=== PATIENT | male | born 1945 | race Caucasian/White ===

== ENCOUNTER 2016-10-14 08:42 | Inpatient (IN) | payer OTHER ==
--- NOTE | 2016-10-14 08:48 | EDPHY ---
H & P HPI/ROS: CHIEF COMPLAINT: Memory issues, balance issues. HISTORY OF PRESENT ILLNESS: The patient is a 71-year-old male with a history of trigeminal neuralgia, tourette's, and Meniere's Disease who presents with memory and balance issues that were 1st noticed by his last night. His reports that he has been repeating the same questions over and over again. Additionally, he has a history of balance issues for multiple years which he has long ago compensated for but was more off-balance this morning. He does admit associated right-sided headache but he is unable to describe if it is different from his typical trigeminal neuralgia pain. He is not on blood thinners. He denies chest pain, shortness of breath, or other complaints. With additional questioning his reports that he fell a couple of days ago. REVIEW OF SYSTEMS: A 10 point review of systems was performed and is negative with the exception of the elements mentioned in the history of present illness. Source: Patient, Family Exam Limitations: No limitations - Personal History Tetanus Vaccine Date: 2013 - Medical/Surgical History Hx Asthma: No Hx Chronic Respiratory Disease: No Hx Diabetes: No Hx Cardiac Disease: No Hx Renal Disease: No Hx Cirrhosis: No Hx Alcoholism: No Hx HIV/AIDS: No Hx Splenectomy or Spleen Trauma: No Other PMH: Tourettes, Meniere's disease, trigeminal neuralgia, HTN, GERD, Depression. PSH: R hand; labrinthectomy; head; microvascular decompression trigeminal nerve; L4-L5 fusion; L1-2 fusion; L shoulder surgery; R ankle; bilateral hernia repair; R 5th finger amputation - Social History Smoking Status: Never smoked Additional Social History: He lives with his . He does not use tobacco products. He denies the use of illicit drugs. He drinks 3-5 alcoholic beverages daily. - Physical Exam Exam: General Appearance: Alert, no acute distress. BP 152/103. Head: Normocephalic atraumatic. Eyes: Pupils equal and round, no conjunctival injection, no discharge. ENT, Mouth: Mucous membranes are moist, no oropharyngeal erythema or edema. Neck: No lymphadenopathy, supple. Respiratory: Lungs are clear to auscultation; no wheezes, rales, or rhonchi. Cardiovascular: Regular rate and rhythm; no murmur, rub, or gallop. Gastrointestinal: Abdomen is soft and nontender, no masses or organomegaly, bowel sounds normal. Skin: Warm and dry, no rashes, normal color. Back: Nontender to palpation over the thoracolumbar spine. Extremities: No lower extremity edema, no calf tenderness or swelling. Neurological: Alert and oriented to person, place, year, and situation. Moving all four extremities easily and equally. Cranial nerves II through XII are examined and are intact with the exception of slight flattening of the left nasal labial fold (visual acuity not tested). Strength is 5 over 5 bilaterally with testing of all major motor groups. Sensation is intact to light touch over all 4 extremities. No truncal ataxia. He was able to ambulate and did not appear to be off balance. Psychiatric: Normal affect. No agitation. Constitutional: Initial Vital Signs Temperature (C) 36.5 C 10/14/16 08:45 Heart Rate 68 10/14/16 08:45 Respiratory Rate 20 10/14/16 08:45 Blood Pressure 152/103 H 10/14/16 08:45 O2 Sat (%) 97 10/14/16 08:45 O2 Delivery Mode Nasal Cannula O2 (L/minute) 2 Allergies/Adverse Reactions: [place] Allergy (Verified 10/14/16 09:19) hops Allergy (Unknown, Uncoded 10/07/14 09:29) pos allergy test [place] Allergy (Unknown, Uncoded 10/07/14 09:30) pos allergy test Home Medications: Medication Instructions Recorded Lisinopril [Zestril 10 mg (*)] 10 mg PO DAILY 10/01/11 Ranitidine HCl [Ranitidine HCl 150 150 mg PO HS 10/12/11 mg] Escitalopram Oxalate [Lexapro] 20 mg PO DAILY 07/17/14 Niacin [Niacin 500 mg (*)] 500 mg PO DAILY 10/14/16 Sildenafil Citrate [Viagra] 100 mg PO DAILY PRN 10/14/16 Tamsulosin HCl [Flomax 0.4 MG (*)] 0.8 mg PO DAILY 10/14/16 Medical Decision Making - Diagnostics Imaging: Imaging Impressions Head CT 10/14/16 08:52 Impression: Large left cerebral hemisphere subacute subdural hematoma with extensive mass effect, rightward 2 cm subfalcine herniation, midline shift, and uncal herniation. Findings and recommendations discussed with Emergency Department physician, Becka Jordan at 0858 hours, October 14, 2016. Final report concurs with initial preliminary interpretation. Chest X-Ray 10/14/16 09:00 Impression: 1. No acute pulmonary disease. 2. Atherosclerotic aorta. ED Course/Re-evaluation: 0845: Stroke alert called as the patient was brought back to his room from triage. I immediately examined the patient in his room. Respiratory therapy at bedside. Patient sent to CT for head imaging after my exam. He complains of left-sided headache. His notes difficulty with balance this morning and confusion that 1st became apparent to her last evening around 8:00 p.m. He is out of the time window for tPA treatment, should this be an ischemic stroke. An IV was established and labs ordered. 0857: Consulted with radiologist. He reports left-sided frontoparietal subdural hematoma. I discussed this with the patient and his at this time. His reports that he fell a couple of days ago. On exam he has a subtle flattening of left nasolabial fold but no other obvious deficits. Neurosurgery paged. Second IV established. 0901: Consulted with neurosurgery re: subdural hematoma. I reviewed the CT scan. He appears to have an acute on chronic subdural hematoma with midline shift. 0905: Neurosurgery PA at bedside examining patient. Surgery planned. Patient's lab work is unremarkable. I independently reviewed the patient's imaging studies on the PACS system. Please see Imaging section for radiologist reports. Differential Diagnosis: I considered a differential diagnosis that includes but is not limited to ischemic stroke, hemorrhagic stroke, subdural hematoma, intracranial infection, electrolyte abnormality, medication or intoxicant effect. This patient has a subdural hematoma, acute on chronic based upon the CT scan appearance. Critical Care Time: I, Dr. Becka Jordan, personally spent a total of 30 minutes of critical care time including time spent obtaining a history, performing a physical exam, monitoring interventions, collecting and interpreting tests and in discussion with consultants. This does not include time spent performing procedures or physician medical office assistant instructor time. He was at risk of neurologic deterioration. - Data Points Laboratory Results: Laboratory Results 10/14/16 08:50 10/14/16 08:50 10/14/16 10/14/16 10/14/16 08:50 08:50 08:50 WBC 6.82 10^3/uL 10^3/uL (3.80-9.50) RBC 4.76 10^6/uL 10^6/uL (4.40-6.38) Hgb 14.8 g/dL g/dL (13.7-17.5) POC Hgb Hct 43.1 % % (40.0-51.0) POC Hct MCV 90.5 fL fL (81.5-99.8) MCH 31.1 pg pg (27.9-34.1) MCHC 34.3 g/dL g/dL (32.4-36.7) RDW 14.3 % % (11.5-15.2) Plt Count 316 10^3/uL 10^3/uL (150-400) MPV 9.8 fL fL (8.7-11.7) Neut % (Auto) 62.5 % % (39.3-74.2) Lymph % (Auto) 28.7 % % (15.0-45.0) [place] % (Auto) 7.2 % % (4.5-13.0) Eos % (Auto) 0.4 % L % (0.6-7.6) Baso % (Auto) 0.6 % % (0.3-1.7) Nucleat RBC Rel Count 0.0 % % (0.0-0.2) Absolute Neuts (auto) 4.26 10^3/uL 10^3/uL (1.70-6.50) Absolute Lymphs (auto) 1.96 10^3/uL 10^3/uL (1.00-3.00) Absolute Monos (auto) 0.49 10^3/uL 10^3/uL (0.30-0.80) Absolute Eos (auto) 0.03 10^3/uL 10^3/uL (0.03-0.40) Absolute Basos (auto) 0.04 10^3/uL 10^3/uL (0.02-0.10) Absolute Nucleated RBC 0.00 10^3/uL 10^3/uL (0-0.01) Immature Gran % 0.6 % % (0.0-1.1) Immature Gran # 0.04 10^3/uL 10^3/uL (0.00-0.10) PT 12.5 SEC SEC (12.0-15.0) INR 0.94 (0.83-1.16) APTT 22.9 SEC L SEC (23.0-38.0) POC Sodium Sodium 141 mEq/L mEq/L (134-144) POC Potassium Potassium 4.6 mEq/L mEq/L (3.5-5.2) POC Chloride Chloride 107 mEq/L mEq/L (97-110) Carbon Dioxide 23 mEq/l mEq/l (22-31) Anion Gap 11 mEq/L mEq/L (8-16) POC BUN BUN 19 mg/dL mg/dL (7-23) Creatinine 0.8 mg/dL mg/dL (0.7-1.3) POC Creatinine Estimated GFR > 60 Glucose 100 mg/dL mg/dL (70-100) POC Glucose Calcium 9.8 mg/dL mg/dL (8.5-10.4) Troponin I < 0.012 ng/mL ng/mL (0-0.034) 10/14/16 08:45 WBC RBC Hgb POC Hgb 15.6 gm/dL gm/dL (14.5-17.3) Hct POC Hct 46 % % (42.8-50.6) MCV MCH MCHC RDW Plt Count MPV Neut % (Auto) Lymph % (Auto) [place] % (Auto) Eos % (Auto) Baso % (Auto) Nucleat RBC Rel Count Absolute Neuts (auto) Absolute Lymphs (auto) Absolute Monos (auto) Absolute Eos (auto) Absolute Basos (auto) Absolute Nucleated RBC Immature Gran % Immature Gran # PT INR APTT POC Sodium 141 mEq/L mEq/L (134-144) Sodium POC Potassium 4.3 mEq/L mEq/L (3.3-5.0) Potassium POC Chloride 104 mEq/L mEq/L (96-108) Chloride Carbon Dioxide Anion Gap POC BUN 22 mg/dL mg/dL (7-23) BUN Creatinine POC Creatinine 0.8 mg/dL mg/dL (0.8-1.5) Estimated GFR Glucose POC Glucose 101 mg/dL H mg/dL (70-100) Calcium Troponin I Medications Given: Discontinued Medications Hydromorphone HCl (Dilaudid) 0.5 mg IVP EDNOW ONE Stop: 10/14/16 10:01 Last Admin: 10/14/16 10:00 Dose: 0.5 mg Point of Care Test Results: 10/14/16 08:45 POC Sodium 141 POC Potassium 4.3 POC Chloride 104 POC BUN 22 POC Creatinine 0.8 POC Glucose 101 H Departure - Departure Disposition: To OP Cath/Surgery Clinical Impression: Subdural hematoma Condition: Fair Report Scribed for: Becka Jordan Report Scribed by: Melvin Marion Date of Report: 10/14/16 Time of Report: 08:46 Physician Review and Approval Statement: 10/14/16 16:41 Portions of this note were transcribed by the medical assistant ob gyn. I, Dr. Becka Jordan, personally performed the history, physical exam, and medical decision- making; and confirmed the accuracy of the information in the transcribed note.
--- NOTE | 2016-10-14 08:52 | CPEKG ---
Heart Rate: 62 RR Interval: 968 P-R Interval: 172 QRSD Interval: 102 QT Interval: 452 QTC Interval: 459 P [place]: 44 QRS [place]: -16 T Wave [place]: 53 EKG Severity - OTHERWISE NORMAL ECG - EKG Impression: SINUS RHYTHM EKG Impression: BORDERLINE LEFT AXIS DEVIATION Electronically Signed By: Becka Jordan 14-Oct-2016 15:41:41
[2016-10-14 09:04] LABS: % IMMATURE GRANULYOCYTES 0.6 % (0.0-1.1); ABSOLUTE IMMATURE GRANULOCYTES 0.04 10^3/uL (0.00-0.10); ADD DIFF? NO; ADD MORPH? NO; ADD SCAN? NO; ATYPICAL LYMPHOCYTE FLAG 10 (0-99); FRAGMENT RBC FLAG 0 (0-99); HEMATOCRIT 43.1 % (40.0-51.0); HEMOGLOBIN 14.8 g/dL (13.7-17.5); LEFT SHIFT FLG 0 (0-99); LIPEMIA HEMOLYSIS FLAG 90 (0-99); MEAN CELL HEMOGLOBIN 31.1 pg (27.9-34.1); MEAN CELL HEMOGLOBIN CONCENTR. 34.3 g/dL (32.4-36.7); MEAN CELL VOLUME 90.5 fL (81.5-99.8); MEAN PLATELET VOLUME 9.8 fL (8.7-11.7); PLATELET CLUMPS FLAG 0 (0-99); PLATELET COUNT 316 10^3/uL (150-400); RED BLOOD CELL COUNT 4.76 10^6/uL (4.40-6.38); RED CELL DISTRIBUTION WIDTH 14.3 % (11.5-15.2)
[2016-10-14 09:11] LABS: INR 0.94 (0.83-1.16); PROTIME(PATIENT) 12.5 SEC (12.0-15.0)
[2016-10-14 09:12] LABS: APTT 22.9 SEC (23.0-38.0)
[2016-10-14 09:18] LABS: ANION GAP 11 mEq/L (8-16); CALCIUM 9.8 mg/dL (8.5-10.4); CARBON DIOXIDE 23 mEq/l (22-31); CHLORIDE 107 mEq/L (97-110); CREATININE 0.8 mg/dL (0.7-1.3); GLOMERULAR FILTRATION RATE > 60; GLUCOSE 100 mg/dL (70-100); POTASSIUM 4.6 mEq/L (3.5-5.2); SODIUM 141 mEq/L (134-144)
[2016-10-14 09:29] LABS: TROPONIN I < 0.012 ng/mL (0-0.034)
[2016-10-14] MEDS ORDERED: HYDROmorphONE/DILAUDID 1 MG/ML SYR ONE (09:54)
[2016-10-14] MEDS ORDERED: HYDROmorphONE/DILAUDID 1 MG/ML SYR IVP ONE (10:00)
--- NOTE | 2016-10-14 10:00 | GHP ---
[f rep st] PREOP HISTORY AND PHYSICAL DATE OF ADMISSION: 10/14/2016 CHIEF COMPLAINT: Balance problems. HISTORY OF PRESENT ILLNESS: The patient is a 71-year-old male with a history of trigeminal neuralgi a, who had a previous right-sided craniotomy for this years ago. Over the last several weeks, he mclean s been having some generalized headaches with some balance issues. Last night, he started repeating the same question over and over. He was brought to the emergency department today, and a head CT s howed a large left-sided subacute on chronic subdural hematoma, and neurosurgical consultation was r equested. He currently complains of an ongoing headache. He is not having any nausea or vomiting. He denies any new weakness. He does feel that his balance has been off. PAST MEDICAL HISTORY: 1. Tourette's. 2. Degenerative joint disease. 3. Hypertension. 4. GERD. 5. Depression. PAST SURGICAL HISTORY: Includes: 1. Previous right-sided microvascular decompression. 2. Lumbar fusion. 3. Hernia repair. 4. Finger amputation. 5. Shoulder surgery. MEDICATIONS: Medications prior to admission are lisinopril, ranitidine, Lexapro, testosterone, oxyc odone, and Robaxin. ALLERGIES: No known drug allergies. FAMILY HISTORY: The patient has no family history of head trauma. SOCIAL HISTORY: Patient is , with grown children. He does not smoke but does drink approxim ately 3-5 alcoholic drinks per day. He denies recreational drug use. REVIEW OF SYSTEMS: Negative. PHYSICAL EXAM: GENERAL: Patient is a 71-year-old male, lying in the emergency department bed, in n o apparent distress. HEENT: Head, eyes, ears, nose, and throat are negative to drainage. EXTREMIT IES: [place], warm, and dry. NEUROLOGIC: He is awake, alert, and oriented x4. Pupils equal, round, reactive to light. Extraocular motions are intact. There is no evidence of facial droop. Tongue a nd uvula are midline. Spinal accessory muscles are intact. His motor strength is 5/5 in his arms a nd legs. Sensation is grossly intact to light touch in his arms and legs. Deep tendon reflexes are 1/4 in his bilateral biceps, triceps, brachioradialis, patellar and Achilles. There is a negative Kareem's with no clonus. There is no pronator drift. DIAGNOSTIC STUDIES: Head CT without contrast from [facility] PACS on 10/14/2016 at 8:52 a.m. shows a large left-sided hemispheric subacute subdural hematoma. This measures approximat meche 3 cm in its greatest thickness. There is approximately 2 cm of [id number] shift. LABORATORY DATA: A CBC from 10/14/2016 shows a white blood cell count of 6.82, hemoglobin of 14.8, and platelet count of 316. Coagulation studies have an INR of 0.94. Chemistry has a sodium of 141, potassium of 4.6, chloride 106, CO2 of 23, BUN 19, creatinine 0.8, and random glucose is 100. IMPRESSION: This is a 71-year-old male with a history of headaches, falls and balance issues that i s likely related to his very large left-sided subacute subdural hematoma. He is neurologically stab le. PLAN: All the above were discussed in detail with the patient, his , as well as Dr. Anusha plummer. The patient was seen and examined by Dr. Resendez in the emergency department. At this po int in time, we recommend that the patient consider surgical decompression of his large left-sided s ubdural hematoma. This would involve a left-sided craniotomy for evacuation of subdural hematoma. He will be given Keppra 750 mg b.i.d. The patient understands the risks of surgery include, but are not limited to, bleeding, infection, neurological injury, cerebrospinal fluid leak, major vascular injury, ongoing symptoms, and a need for further surgery down the line. He is [facility] up [facility] the [facility] pres[facility] paperwork and signed the [facility] and [facility] con sent forms. We will keep him n.p.o. until surgical intervention today. /[id number]/MODL
[2016-10-14] MEDS: levETIRAcetam 750 MG in NS 100 ML IV SCH ×2 (10:20→20:52)
[2016-10-14] MEDS ORDERED: MANNITOL 20% 100 GM/500 ML BAG IV ONE (10:47)
[2016-10-14] MEDS ORDERED: BUPIVACAINE/EPI 0.25% 30 ML SDV ONE (10:47)
[2016-10-14] MEDS ORDERED: THROMBIN (BOVINE) 5,000 UNIT VIAL TP ONE (10:47)
[2016-10-14] MEDS ORDERED: BACITRACIN 50,000 UNITS/10 ML SYR IRR ONE (10:48)
[2016-10-14] MEDS ORDERED: fentaNYL 100 MCG/2 ML INJ ONE ×3 (11:14→12:53)
[2016-10-14] MEDS ORDERED: PROPOFOL 200 MG/20 ML VIAL ONE (11:14)
[2016-10-14] MEDS ORDERED: PROPOFOL/EMULSION 500 MG/50 ML BOTTLE IV ONE (11:18)
[2016-10-14] MEDS ORDERED: LIDOCAINE 2% 5 ML SDV ONE (11:20)
[2016-10-14] MEDS ORDERED: ROCURONIUM 50 MG/5 ML VIAL ONE (11:34)
[2016-10-14] MEDS ORDERED: ceFAZolin 1 GM VIAL ONE ×2 (12:12)
[2016-10-14] MEDS ORDERED: SUGAMMADEX SODIUM 200 MG/2 ML VIAL IVP ONE (12:36)
[2016-10-14] MEDS ORDERED: BISACODYL 10 MG SUPP PR PRN (13:17)
[2016-10-14] MEDS ORDERED: MAGNESIUM HYDROXIDE 30 ML UDCUP PO PRN (13:17)
[2016-10-14] MEDS ORDERED: niCARdipine/NACL 200 ML IV PRN (13:17)
[2016-10-14] MEDS ORDERED: PROMETHAZINE HCL 25 MG TAB PO PRN (13:17)
[2016-10-14] MEDS ORDERED: ONDANSETRON 4 MG/2 ML VIAL IVP PRN (13:17)
[2016-10-14] MEDS ORDERED: LACTULOSE 20 GM/30 ML UDCUP PO PRN (13:17)
[2016-10-14] MEDS ORDERED: SILDENAFIL CITRATE 100 MG PO PRN (13:21)
--- NOTE | 2016-10-14 13:24 | SOAPPROG ---
SOAP Progress Note Assessment/Plan: Assessment: 71 yo M sp craniotomy for evacuation of left sided SDH Plan: stable subdural drain open below shoulder level head ct in am on keppra please call with neuro changes 10/14/16 13:22 Subjective: + headache, no N/V. Objective: Vital Signs Temp Pulse Resp BP Pulse Ox 36.5 C 65 16 135/91 H 97 10/14/16 08:45 10/14/16 10:47 10/14/16 10:47 10/14/16 10:47 10/14/16 10:47 10/13/16 10/14/16 10/15/16 05:59 05:59 05:59 Intake Total 100 Balance 100 PT 12.5 SEC (12.0-15.0) 10/14/16 08:50 INR 0.94 (0.83-1.16) 10/14/16 08:50 Awake, alert PERRL, no facial droop BRADLEY x 4 + light touch C/D/I ICD10 Worksheet Patient Problems: Problems Problem Status Onset Subdural hematoma Acute S/P lumbar spinal fusion Acute
[2016-10-14] MEDS ORDERED: (Sildenafil Citrate [Viagra] 100 MG) PO PRN (13:35)
[2016-10-14] MEDS: NS W/ 20 KCl/L 1,000 ML IV SCH ×2 (13:40→23:34)
[2016-10-14] MEDS ORDERED: LORazepam 2 MG/ML INJ IVP PRN ×2 (13:52→13:54)
[2016-10-14] MEDS ORDERED: DEXMEDETOMIDINE HCL 400 MCG in NS 100 ML IV SCH (14:00)
--- NOTE | 2016-10-14 15:21 | GOP ---
[f rep st] OPERATIVE REPORT DATE OF OPERATION: 10/14/2016 SURGEON: Trey Resendez MD ANESTHESIA: General endotracheal. PREOPERATIVE DIAGNOSIS: Large left, acute on chronic subdural hematoma. POSTOPERATIVE DIAGNOSIS: Large left, acute on chronic subdural hematoma. PROCEDURE PERFORMED: 1. Emergency left-sided craniotomy for evacuation of subdural hematoma. 2. Placement of subdural drainage catheter. FINDINGS: ESTIMATED BLOOD LOSS: Trace. INDICATIONS: The patient is a 71-year-old man with mental status changes and balance difficulty ove r the past couple of days. The reports that he fell down a couple of days ago, and he has just not been acting right. He was brought to the [facility] emergency room where a hea d CT demonstrated a large subdural fluid collection. He presents now for surgical intervention. Af ter neurosurgical evaluation and a significant (2 cm) amount of brain shift and mass effect. DESCRIPTION OF PROCEDURE: After informed consent was obtained, the patient was taken to the operati ng room and placed in the supine position with the head in the [place] head end desizing machine operator. The head was a ngled slightly to the right, and the left frontoparietal area was prepped and draped in sterile fash ion, and a curvilinear incision was created over the coronal suture area and the skin flapped inferi kat. A subperiosteal dissection ensued and an approximately 5-6 cm bone flap was turned in a stand levar fashion using a match stick fluted bur and the router. Multiple peripheral tack-ups were then p laced and meticulous hemostasis was achieved. The dura was opened, and a thick membrane was identif ied below the dura, holding a large amount of motor oil consistency blood in the subdural space idania g with also more acute thickened blood and other material in the subdural space. The brain had been significantly shifted away from the skull by approximately 3 cm. The subdural space was copiously irrigated with normal saline until it was completely clear. Following this, a red rubber catheter w as then placed and tunneled out the skin through a separate area and connected to a Diggs drainage system. The dura was then closed using interrupted Nurolon and a running Prolene suture along with Gel-Foam soaked in thrombin. The bone flap was then replaced and secured with multiple titanium fco raul and screws. The galea was then reapproximated using interrupted Vicryl sutures, followed by sta ples in the skin. COMPLICATIONS: None. DISPOSITION: The patient was extubated and transferred to the recovery room in stable condition. /[id number]/MODL
[2016-10-14] MEDS: POLYETHYLENE GLYCOL 3350 17 GM PKT PO SCH ×2 (17:18→20:40)
[2016-10-14] MEDS: HYDROCODONE/APAP 10/325 TAB PO PRN (18:35)
--- NOTE | 2016-10-14 20:41 | GCON ---
[f rep st] CONSULTATION PULMONARY CRITICAL CARE CONSULTATION DATE OF CONSULTATION: 10/14/2016 REASON FOR CONSULTATION: Intensive care unit evaluation and medical management following craniotomy for a subdural hematoma. HISTORY: The patient is a 71-year-old gentleman who presented to the emergency department with head ache and balance issues that have been progressive over the last couple of weeks. Yesterday he star nelly perseverating. He was brought to the emergency room secondary to his abnormal mental status. C T scan of the head showed a large left-sided subdural fluid collection, which was at least in part c hronic. He was taken to the operating room today where his subdural was drained. He underwent cran iotomy with successful evacuation of his fluid collection. A subdural drainage catheter was left in place. He was returned to the intensive care unit in good condition, extubated, but confused and u ncooperative. He has been placed on Precedex. PAST MEDICAL HISTORY: Remarkable for systemic hypertension, gastroesophageal reflux disease, depres kamron, Tourette's syndrome, and DJD. PAST SURGICAL HISTORY: Included a previous right-sided craniotomy for trigeminal neuralgia a number of years ago, herniorrhaphy, lumbar surgery, shoulder surgery, and finger amputation. MEDICATIONS: Home medications included p.r.n. sildenafil, niacin, Flomax, Zantac, Zestril and Lexap ro. SOCIAL HISTORY: The patient is . He does drink alcohol nightly, 3-5 drinks by history. Tob acco is negative. Drugs are negative. FAMILY HISTORY: Noncontributory. REVIEW OF SYSTEMS: Unobtainable currently. PHYSICAL EXAMINATION: GENERAL: Reveals a gentleman who is immediately postop, agitated, and relati vely uncooperative. VITAL SIGNS: Blood pressure is 130/60, heart rate bradycardic in the low 40s, saturation is of 99% on 3 L, respiratory rate 12. He is afebrile. HEENT: Remarkable for his crani otomy and drain being in place. Pupils appear equal. Mucous membranes are dry. There is no jugula r venous distention. CHEST: Clear bilaterally. Excursions are somewhat diminished at the bases. HEART: Regular in rate and rhythm. There is a soft systolic murmur, no gallop. ABDOMEN: Soft, no ntender. Bowel sounds are diminished but present. EXTREMITIES: Remarkable for significant edema, cords or tenderness. A Haddad catheter is in place. NEUROLOGIC: Examination is grossly nonfocal. He is agitated and somewhat confused postoperatively. ASSESSMENT: 1. Subdural hematoma, status post evacuation. 2. Abnormal mental status. Multifactorial, related to recovery from anesthesia, medications, and p ossibly the effects of his subdural. In addition, he has underlying Tourette's syndrome and I do no t know the severity of this. He is currently agitated and Precedex may be of benefit. 3. He has a history of relatively heavy alcohol use. He is at risk for alcohol withdrawal and will be placed on Ativan. He will be given thiamine as well. If and when appropriate, the CIWA protoco l can be added. 4. History of hypertension, reflux and prostatic hypertrophy. PLAN/RECOMMENDATIONS: The patient will be kept in the intensive care unit. Precedex will be titrat ed for gentle sedation and agitation. Appropriate pain control will be maintained. Seizure prophyl axis with Keppra will be given. Usual outpatient medications will be continued. Appropriate substi tutes may be needed. Laboratory will be followed. Followup CT scan of the head per Neurosurgery. Further plans and recommendations will be made based on his progress over the next 12-24 hours. /[id number]/MODL
[2016-10-14] MEDS: SENNOSIDES/DOCUSATE SODIUM TAB PO SCH (20:52)
[2016-10-14] MEDS: FAMOTIDINE 20 MG TAB PO SCH (20:53)
[2016-10-14] MEDS ORDERED: NON-FORMULARY NEW DRUG (Ranitidine Hcl [Ranitidine Hcl 150 Mg] 150 MG) PO SCH (21:00)
[2016-10-15] MEDS: HYDROCODONE/APAP 10/325 TAB PO PRN ×5 (00:16→23:52)
[2016-10-15 05:34] LABS: % IMMATURE GRANULYOCYTES 0.5 % (0.0-1.1); ABSOLUTE IMMATURE GRANULOCYTES 0.05 10^3/uL (0.00-0.10); ADD DIFF? NO; ADD MORPH? NO; ADD SCAN? NO; ATYPICAL LYMPHOCYTE FLAG 20 (0-99); FRAGMENT RBC FLAG 0 (0-99); HEMATOCRIT 34.6 % (40.0-51.0); HEMOGLOBIN 11.8 g/dL (13.7-17.5); LEFT SHIFT FLG 0 (0-99); LIPEMIA HEMOLYSIS FLAG 90 (0-99); MEAN CELL HEMOGLOBIN 31.6 pg (27.9-34.1); MEAN CELL HEMOGLOBIN CONCENTR. 34.1 g/dL (32.4-36.7); MEAN CELL VOLUME 92.8 fL (81.5-99.8); PLATELET CLUMPS FLAG 10 (0-99); PLATELET COUNT 239 10^3/uL (150-400); RED BLOOD CELL COUNT 3.73 10^6/uL (4.40-6.38); RED CELL DISTRIBUTION WIDTH 14.6 % (11.5-15.2)
[2016-10-15 05:44] LABS: ANION GAP 7 mEq/L (8-16); CALCIUM 8.1 mg/dL (8.5-10.4); CARBON DIOXIDE 21 mEq/l (22-31); CHLORIDE 109 mEq/L (97-110); CREATININE 0.8 mg/dL (0.7-1.3); GLOMERULAR FILTRATION RATE > 60; GLUCOSE 88 mg/dL (70-100); POTASSIUM 4.5 mEq/L (3.5-5.2); SODIUM 137 mEq/L (134-144)
--- NOTE | 2016-10-15 08:16 | NEUSURGPN ---
Assessment/Plan: Assessment: 71 yo M sp craniotomy for evacuation of left sided SDH, POD#1 Plan: stable subdural drain open below shoulder level - 315 out last [address] head ct reviewed, shows improvement. still with expected residual blood products PT/OT/PSYCHIATRIC RN Encourage OOB on keppra please call with neuro changes D/w Dr Child Subjective: Pt resting in bed, states he is feeling good. Eating breakfast. Objective: AAOx3 NAD VSS No droop PERRL EOMi deaf R ear Incision cdi subdural drain in place with bloody dc in line MAEx4 Motor 5/5 BUE/BLE Urinary Catheter in Place: Yes Urinary Catheter Indication: Other (Use Comment) (to be removed today) Catheter Insertion Date: 10/14/16 - Physician Discussed Patient with : Dipti Neurosurgery Physical Exam - Vitals, I&O, Labs I and O 10/14/16 10/15/16 10/16/16 05:59 05:59 05:59 Intake Total 2452.3 Output Total 2290 125 Balance 162.3 -125 Weight 81.647 kg Intake: Oral (ml) 250 IV Infused (ml) 2202.3 Dexmedetomidine HCl 400 17.3 mcg In Ns 100 ml @ Per Protocol IV CONT KEITH Rx#: [id number] NS W/ 20 KCl/L 1,000 ml @ 2085 100 mls/hr IV CONT KEITH Rx#:[id number] Output: Urine (ml) 1974 125 Catheter 1975 125 Wound Drainage (ml) 315 Left Posterior Parietal 315 Other: Intake Quantity Yes Sufficient Vital Signs Temp Pulse Resp BP Pulse Ox 36.1 C 54 L 16 127/80 H 96 10/15/16 07:37 10/15/16 07:37 10/15/16 07:37 10/15/16 07:37 10/15/16 07:37 Laboratory Results 10/15/16 05:24 10/15/16 05:24 ICD10 Worksheet Patient Problems: Problems Problem Status Onset Subdural hematoma Acute S/P lumbar spinal fusion Acute
[2016-10-15] MEDS ORDERED: NON-FORMULARY NEW DRUG (Escitalopram Oxalate [Lexapro] 20 MG) PO SCH (09:00)
[2016-10-15] MEDS: SENNOSIDES/DOCUSATE SODIUM TAB PO SCH ×2 (09:37→20:35)
[2016-10-15] MEDS: ESCITALOPRAM OXALATE 10 MG TAB PO SCH (09:38)
[2016-10-15] MEDS: TAMSULOSIN HCL 0.4 MG CAP PO SCH (09:38)
[2016-10-15] MEDS: POLYETHYLENE GLYCOL 3350 17 GM PKT PO SCH ×3 (09:38→20:35)
[2016-10-15] MEDS: LISINOPRIL 10 MG TAB PO SCH (09:38)
[2016-10-15] MEDS: NIACIN 500 MG TAB PO SCH (09:38)
[2016-10-15] MEDS: levETIRAcetam 500 MG TAB PO SCH ×2 (11:02→20:34)
--- NOTE | 2016-10-15 13:13 | PDINTPN ---
Nurse Wound Progress Note Assessment/Plan: Assessment: Subdural hematoma with balance and mental status changes. Status post evacuation. Drain in place. On Keppra. Doing well, clinically improved. Agitation postoperatively: Resolved. Off Precedex. No clear need for Ativan. History of alcohol use. No signs and symptoms of withdrawal. No need for CIWA protocol. History of hypertension, reflux, Tourettes. Stable, on his usual outpatient medications. DVT prophylaxis: SCDs Plan: Continue care in the intensive care unit for now secondary to drain in place and neurologic monitoring. Follow neuro status. Increase mobilization as tolerated. PT/OT to see. 35 minutes of critical care time spent with the patient. Questions answered. Discussed with the patient's , nursing, and the ICU multi disciplinary team Subjective: Doing well. Feels much better. No longer confused. Alert, appropriate. Denies significant headache. Drain remains in place. Objective: Vital Signs Temp Pulse Resp BP Pulse Ox 36.2 C 57 L 16 122/69 H 94 10/15/16 11:49 10/15/16 11:49 10/15/16 11:49 10/15/16 11:49 10/15/16 11:49 Laboratory Results 10/15/16 05:24 10/15/16 05:24 10/14/16 10/15/16 10/16/16 05:59 05:59 05:59 Intake Total 2452.3 1500 Output Total 2290 1025 Balance 162.3 475 PT 12.5 SEC (12.0-15.0) 10/14/16 08:50 INR 0.94 (0.83-1.16) 10/14/16 08:50 CT head: Drain in place. Improved subdural hematoma and shift as expected Physical Exam - Physical Exam General Appearance: alert, no apparent distress EENT: PERRL/EOMI, other (Drain in place with bloody fluid draining) Neck: normal inspection Respiratory: lungs clear Cardiac/Chest: bradycardia (High 30s to 50s. Blood pressure stable) Abdomen: normal bowel sounds, non-tender, soft Skin: normal color, warm/dry Extremities: No pedal edema Neuro/Psych: no motor/sensory deficits, No cognition abnormalities ICD10 Worksheet Patient Problems: Problems Problem Status Onset S/P lumbar spinal fusion Acute Subdural hematoma Acute
[2016-10-15] MEDS: levETIRAcetam 750 MG in NS 100 ML IV SCH (13:25)
[2016-10-15] MEDS: FAMOTIDINE 20 MG TAB PO SCH (20:35)
[2016-10-16] MEDS: HYDROCODONE/APAP 10/325 TAB PO PRN ×4 (06:50→23:08)
--- NOTE | 2016-10-16 07:07 | NEUSURGPN ---
Assessment/Plan: Assessment: 71 yo M sp craniotomy for evacuation of left sided SDH, POD#2 Plan: stable subdural drain open below shoulder level - drain was flush and is now producing blood tinged fluid. Previously output was low. Post op head ct reviewed, shows improvement. 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 Tolerating diet and voiding. Objective: AAOx3 VSS No droop CN II-XII grossly intact MAEx4 Incision cdi subdural drain with serosanguineous dc in line, draining now after being flushed. Urinary Catheter in Place: No Catheter Insertion Date: 10/14/16 Neurosurgery Physical Exam - Vitals, I&O, Labs I and O 10/15/16 10/16/16 10/17/16 05:59 05:59 05:59 Intake Total 2452.3 2100 Output Total 2290 4188 5 Balance 162.3 -2088 -5 Weight 81.647 kg Intake: Oral (ml) 250 2100 IV Infused (ml) 2202.3 Dexmedetomidine HCl 400 17.3 mcg In Ns 100 ml @ Per Protocol IV CONT KEITH Rx#: [id number] NS W/ 20 KCl/L 1,000 ml @ 2085 100 mls/hr IV CONT KEITH Rx#:[id number] Output: Urine (ml) 1974 4150 Catheter 1975 125 Urinal 4025 Wound Drainage (ml) 315 38 5 Left Posterior Parietal 315 38 5 Other: Intake Quantity Yes Yes Sufficient Number of Voids Urinal 1 Vital Signs Temp Pulse Resp BP Pulse Ox 36.8 C 46 L 14 124/64 H 97 10/15/16 19:46 10/16/16 02:38 10/16/16 02:38 10/16/16 02:38 10/16/16 02:38 Laboratory Results 10/15/16 05:24 10/15/16 05:24 ICD10 Worksheet Patient Problems: Problems Problem Status Onset Subdural hematoma Acute S/P lumbar spinal fusion Acute
[2016-10-16] MEDS: SENNOSIDES/DOCUSATE SODIUM TAB PO SCH ×2 (08:29→20:10)
[2016-10-16] MEDS: levETIRAcetam 500 MG TAB PO SCH ×2 (08:30→20:10)
[2016-10-16] MEDS: NIACIN 500 MG TAB PO SCH (08:30)
[2016-10-16] MEDS: ESCITALOPRAM OXALATE 10 MG TAB PO SCH (08:30)
[2016-10-16] MEDS: TAMSULOSIN HCL 0.4 MG CAP PO SCH (08:31)
[2016-10-16] MEDS: LISINOPRIL 10 MG TAB PO SCH (08:31)
[2016-10-16] MEDS: POLYETHYLENE GLYCOL 3350 17 GM PKT PO SCH ×3 (08:31→22:00)
--- NOTE | 2016-10-16 15:03 | PDINTPN ---
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 Status post evacuation 10/14. Drain in place. On Keppra. Doing well. Continue plans as per neuro surgery. Agitation postoperatively: Resolved. Off Precedex. No need for Ativan. History of alcohol use. No signs and symptoms of withdrawal. No need for CIWA protocol. History of hypertension, reflux, Tourettes. Stable, on his usual outpatient medications. DVT prophylaxis: SCDs Plan: Continue care in the intensive care unit for now secondary to drain and neurologic monitoring. Follow neuro status. Increase mobilization as tolerated. Continue work with PT/OT. 25 minutes of critical care time spent with the patient. Discussed with the patient's , nursing, and the ICU multi disciplinary team Subjective: Doing well. Working with physical therapy this morning. Walked twice around the unit. Still somewhat unsteady on his feet. Objective: Vital Signs Temp Pulse Resp BP Pulse Ox 36.4 C 61 15 121/64 H 95 10/16/16 12:00 10/16/16 12:00 10/16/16 12:00 10/16/16 12:00 10/16/16 12:00 Laboratory Results 10/15/16 05:24 10/15/16 05:24 10/15/16 10/16/16 10/17/16 05:59 05:59 05:59 Intake Total 2452.3 2100 Output Total 2290 4188 30 Balance 162.3 -2088 -30 PT 12.5 SEC (12.0-15.0) 10/14/16 08:50 INR 0.94 (0.83-1.16) 10/14/16 08:50 Physical Exam - Physical Exam General Appearance: alert, no apparent distress EENT: PERRL/EOMI, other (Drain in place, bloody serous fluid. Slowing down but still draining, more so as the drain was lowered.) Neck: normal inspection Respiratory: lungs clear Cardiac/Chest: regular rate, rhythm Abdomen: normal bowel sounds, non-tender, soft Skin: normal color, warm/dry Extremities: No pedal edema Neuro/Psych: no motor/sensory deficits (Moves all extremities equally), No cognition abnormalities ICD10 Worksheet Patient Problems: Problems Problem Status Onset S/P lumbar spinal fusion Acute Subdural hematoma Acute
[2016-10-16] MEDS: FAMOTIDINE 20 MG TAB PO SCH (20:10)
[2016-10-17] MEDS: HYDROCODONE/APAP 10/325 TAB PO PRN ×4 (07:09→23:35)
[2016-10-17] MEDS: LISINOPRIL 10 MG TAB PO SCH (08:25)
[2016-10-17] MEDS: NIACIN 500 MG TAB PO SCH (08:26)
[2016-10-17] MEDS: levETIRAcetam 500 MG TAB PO SCH ×2 (08:26→20:12)
[2016-10-17] MEDS: ESCITALOPRAM OXALATE 10 MG TAB PO SCH (08:26)
[2016-10-17] MEDS: SENNOSIDES/DOCUSATE SODIUM TAB PO SCH ×2 (08:26→20:07)
[2016-10-17] MEDS: TAMSULOSIN HCL 0.4 MG CAP PO SCH (08:26)
[2016-10-17] MEDS: POLYETHYLENE GLYCOL 3350 17 GM PKT PO SCH ×3 (08:27→20:28)
--- NOTE | 2016-10-17 12:38 | PDINTPN ---
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 Status post evacuation 10/14. Drain in place. On Keppra. Doing well. Continue plans as per neuro surgery. Agitation postoperatively: Resolved. Off Precedex. No need for Ativan. History of alcohol use. No signs and symptoms of withdrawal. No need for CIWA protocol. History of hypertension, reflux, Tourettes. Stable, on his usual outpatient medications. DVT prophylaxis: SCDs Plan: Continue care in the intensive care unit for now secondary to drain and neurologic monitoring. Follow neuro status. Increase mobilization as tolerated. Continue work with PT/OT. 20 minutes of critical care time spent with the patient. Discussed with the patient's , nursing, and the ICU multi disciplinary team Subjective: Doing well. No complaints. No shortness of breath, slight headache. Unsteadiness is better. No bowel movement yet. Objective: Vital Signs Temp Pulse Resp BP Pulse Ox 36.3 C 57 L 14 146/76 H 98 10/17/16 08:00 10/17/16 08:00 10/17/16 08:00 10/17/16 08:25 10/17/16 08:00 Laboratory Results 10/15/16 05:24 10/15/16 05:24 10/16/16 10/17/16 10/18/16 05:59 05:59 05:59 Intake Total 2100 500 Output Total 4188 1166 3 Balance -2088 -1166 497 PT 12.5 SEC (12.0-15.0) 10/14/16 08:50 INR 0.94 (0.83-1.16) 10/14/16 08:50 Physical Exam - Physical Exam General Appearance: alert, no apparent distress EENT: other (On room air. Drain remains in place, decreasing drainage) Neck: normal inspection Respiratory: lungs clear Cardiac/Chest: bradycardia Abdomen: normal bowel sounds, non-tender, soft Skin: normal color, warm/dry Neuro/Psych: no motor/sensory deficits (Non focal), No cognition abnormalities ICD10 Worksheet Patient Problems: Problems Problem Status Onset S/P lumbar spinal fusion Acute Subdural hematoma Acute
--- NOTE | 2016-10-17 16:01 | NEUSURGPN ---
Assessment/Plan: Assessment: 71 yo M sp craniotomy for evacuation of left sided SDH, POD#3 Patient seen and examined this AM Plan: stable subdural drain open below shoulder level - drain was flushed again this am, possibly remove tomorrow as output is slowing. Post op head ct reviewed, shows improvement. 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 Feeling ok. Objective: AAOx3 NAD VSS MAEx4 Motor 5/5 BUE/BLE Incision cdi justin in place Subdural drain with clotting in line Urinary Catheter in Place: No Catheter Insertion Date: 10/14/16 Neurosurgery Physical Exam - Vitals, I&O, Labs I and O 10/16/16 10/17/16 10/18/16 05:59 05:59 05:59 Intake Total 2100 500 Output Total 4188 1166 5 Balance -2088 -1166 495 Intake: Oral (ml) 2100 500 Output: Urine (ml) 4150 1125 Catheter 125 Urinal 4025 1125 Wound Drainage (ml) 38 41 5 Left Posterior Parietal 38 41 5 Other: Intake Quantity Yes Yes Sufficient Number of Voids Urinal 1 1 2 Number of Stools Urinal 1 Vital Signs Temp Pulse Resp BP Pulse Ox 36.6 C 58 L 14 108/58 L 95 10/17/16 12:00 10/17/16 12:00 10/17/16 12:00 10/17/16 12:00 10/17/16 12:00 Laboratory Results 10/15/16 05:24 10/15/16 05:24 ICD10 Worksheet Patient Problems: Problems Problem Status Onset Subdural hematoma Acute S/P lumbar spinal fusion Acute
[2016-10-17] MEDS: FAMOTIDINE 20 MG TAB PO SCH (20:12)
[2016-10-18] MEDS: HYDROCODONE/APAP 10/325 TAB PO PRN ×2 (06:26→12:38)
--- NOTE | 2016-10-18 06:35 | NEUSURGPN ---
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 NAD. Eating/drinking and voiding. No f/c/n/v/d. Objective: AAOx3 NAD VSS MAEx4 Motor 5/5 BUE/BLE Incision cdi justin in place Subdural drain noted Neuro Check Frequency: per routine Urinary Catheter in Place: No Catheter Insertion Date: 10/14/16 - Physician Discussed Patient with : Dipti Neurosurgery Physical Exam - Vitals, I&O, Labs I and O 10/17/16 10/18/16 10/19/16 05:59 05:59 05:59 Intake Total 1250 Output Total 1166 11.5 Balance -1166 1238.5 Intake: Oral (ml) 1250 Output: Urine (ml) 1125 Urinal 1125 Wound Drainage (ml) 41 11.5 Left Posterior Parietal 41 11.5 Other: Intake Quantity Yes Sufficient Number of Voids Urinal 1 1 Number of Stools Urinal 3 Vital Signs Temp Pulse Resp BP Pulse Ox 36.6 C 57 L 14 138/75 H 93 10/17/16 23:37 10/18/16 04:00 10/18/16 04:00 10/18/16 04:00 10/18/16 04:00 Laboratory Results 10/15/16 05:24 10/15/16 05:24 ICD10 Worksheet Patient Problems: Problems Problem Status Onset Subdural hematoma Acute S/P lumbar spinal fusion Acute
[2016-10-18 07:33] VITALS: PULSE 53; RESP 12; TEMP 97.9
[2016-10-18] MEDS: SENNOSIDES/DOCUSATE SODIUM TAB PO SCH (07:44)
[2016-10-18] MEDS: POLYETHYLENE GLYCOL 3350 17 GM PKT PO SCH (07:44)
[2016-10-18] MEDS: LISINOPRIL 10 MG TAB PO SCH (07:46)
[2016-10-18 07:47] VITALS: BP 110/78
[2016-10-18] MEDS: levETIRAcetam 500 MG TAB PO SCH (07:47)
[2016-10-18] MEDS: TAMSULOSIN HCL 0.4 MG CAP PO SCH (07:47)
[2016-10-18] MEDS: ESCITALOPRAM OXALATE 10 MG TAB PO SCH (07:48)
[2016-10-18] MEDS: NIACIN 500 MG TAB PO SCH (07:48)
--- NOTE | 2016-10-18 09:48 | PDINTPN ---
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 Status post evacuation 10/14. Drain in place. On Keppra. Doing well. Continue plans as per neuro surgery. -possible D/c of drain today * Agitation postoperatively: Resolved. Off Precedex. No need for Ativan. * History of alcohol use. No signs and symptoms of withdrawal. No need for CIWA protocol. * History of hypertension, reflux, Tourettes. Stable, on his usual outpatient medications. * DVT prophylaxis: SCDs Subjective: Comfortable. Objective: Vital Signs Temp Pulse Resp BP Pulse Ox 36.6 C 53 L 12 110/78 96 10/18/16 07:32 10/18/16 07:32 10/18/16 07:32 10/18/16 07:46 10/18/16 07:32 Laboratory Results 10/15/16 05:24 10/15/16 05:24 10/17/16 10/18/16 10/19/16 05:59 05:59 05:59 Intake Total 1650 Output Total 1166 11.5 0 Balance -1166 1638.5 0 PT 12.5 SEC (12.0-15.0) 10/14/16 08:50 INR 0.94 (0.83-1.16) 10/14/16 08:50 Physical Exam - Physical Exam General Appearance: alert, no apparent distress EENT: PERRL/EOMI, normal ENT inspection, pharynx normal, TMs normal Neck: non-tender, full range of motion, supple, normal inspection Respiratory: chest non-tender, lungs clear, normal breath sounds Cardiac/Chest: normal peripheral pulses, regular rate, rhythm Peripheral Pulses: 2+: carotid (R), carotid (L), femoral (R), femoral (L), dorsalis-pedis (R), dorsalis-pedis (L) Abdomen: normal bowel sounds, non-tender, soft Male Genitalia: deferred Rectal: deferred Skin: normal color, warm/dry ICD10 Worksheet Patient Problems: Problems Problem Status Onset Subdural hematoma Acute S/P lumbar spinal fusion Acute
[2016-10-18 15:25] VITALS: O2SAT 94
--- NOTE | 2016-11-02 16:01 | GDS ---
[f rep st] DISCHARGE SUMMARY ADMISSION DIAGNOSIS: Acute on chronic subdural hematoma. DISCHARGE DIAGNOSIS: Status post craniotomy for evacuation of subdural hematoma. HISTORY AND PHYSICAL: Please see admission history and physical course. This is a 71-year-old male who presented with headaches, falls and balance issues. He was evaluated in the [facility] emergency department and was found to have a very large, left-sided, acute on chronic subdural hematoma. He was taken to the operating room on 10/14/2016 where he underwent a left-sided craniotomy for evacuation of subdural hematoma. There were no intraoperative complicati ons, and a drain was placed in the subdural space. His postoperative imaging showed improvement of the subdural hematoma with some chronic residual fluid with a chronic residual subdural hygroma. He made fair progress with physical therapy and occupational therapy. His drain was removed on 2016. He did well with physical therapy and occupational therapy and was discharged home in stable condition on 10/2009. Patient was discharged with a craniotomy postoperative instructions pricila mmend he return for a neurosurgical followup appointment in 1-2 weeks with a repeat head CT without contrast. /[id number]/MODL
== END 2016-10-18 14:01 | disposition home or self-care (01) | DRG 27 ==
LOC: F2N 13:26
PROVIDERS: ADMIT Neurological Surgery; ATTEND Neurological Surgery
PROC: 009400Z Drainage of Intracranial Subdural Space with Drainage Device, Open Approach (ICD-10-PCS; principal; 2016-10-14 17:15)
DX: S06.5X9A Traumatic subdural hemorrhage with loss of consciousness of unspecified duration, initial encounter (principal); W19.XXXA Unspecified fall, initial encounter; R45.1 Restlessness and agitation; F10.10 Alcohol abuse, uncomplicated; K21.9 Gastro-esophageal reflux disease without esophagitis; H81.09 Meniere's disease, unspecified ear; F95.2 Tourette's disorder; I10 Essential (primary) hypertension; Z98.1 Arthrodesis status
CPT/HCPCS: 82947-QW; 92507-GN; 92523-GN; 96374; 97112-GP; 97116-GP; 97161-GP; 97166-GO; 97535-GO; C1713; G8978-GP-CJ; G8979-GP-CI; G8980-GP-CI; G8987-GO-CI; G8988-GO-CH; G8989-GO-CI; G9168-GN-CK; G9169-GN-CI; J0690; J1170; J1953; J2060; J2704; J3010

== ENCOUNTER → 2016-10-19 | Outpatient (CLI) | payer OTHER | LOC: FIMAGING 15:06 | PROVIDERS: ATTEND Neurological Surgery | DX: I62.00 Nontraumatic subdural hemorrhage, unspecified (principal); G93.9 Disorder of brain, unspecified; M51.36 Other intervertebral disc degeneration, lumbar region; Z98.1 Arthrodesis status ==

== ENCOUNTER → 2016-10-29 | Outpatient (CLI) | payer OTHER | LOC: FIMAGING 09:44 | PROVIDERS: ATTEND Physician Assistant Surgical | DX: I62.03 Nontraumatic chronic subdural hemorrhage (principal); Z98.890 Other specified postprocedural states ==

== ENCOUNTER → 2016-11-12 | Outpatient (CLI) | payer OTHER | LOC: FIMAGING 08:33 | PROVIDERS: ATTEND Physician Assistant Surgical | DX: I62.03 Nontraumatic chronic subdural hemorrhage (principal) ==

== ENCOUNTER → 2016-11-24 | Outpatient (CLI) | payer OTHER | LOC: FIMAGING 14:56 | PROVIDERS: ATTEND Physician Assistant Surgical | DX: I62.03 Nontraumatic chronic subdural hemorrhage (principal) ==

== ENCOUNTER → 2016-12-21 | Outpatient (CLI) | payer OTHER | LOC: FIMAGING 13:54 | PROVIDERS: ATTEND Physician Assistant Surgical | DX: I62.03 Nontraumatic chronic subdural hemorrhage (principal); G50.1 Atypical facial pain; M43.26 Fusion of spine, lumbar region ==

== ENCOUNTER → 2017-01-02 | Outpatient (CLI) | payer OTHER | LOC: FCPNEURO 20:00 | PROVIDERS: ATTEND Psychiatry & Neurology Sleep Medicine | DX: G47.33 Obstructive sleep apnea (adult) (pediatric) (principal); G47.61 Periodic limb movement disorder ==

== ENCOUNTER 2017-01-07 08:22 | Day surgery (SDC) | payer OTHER ==
[2017-01-07] MEDS ORDERED: ceFAZolin 2 GM/DEXTROSE 100 ML IV ONE (08:46)
[2017-01-07] MEDS ORDERED: LR 1,000 ML IV SCH (08:46)
[2017-01-07] MEDS ORDERED: LR 1,000 ML IV ONE (08:47)
[2017-01-07] MEDS ORDERED: LIDOCAINE 1% 2 ML INJ ID PRN (08:47)
[2017-01-07] MEDS ORDERED: BUPIVACAINE/EPI 0.25% 30 ML SDV ONE (08:50)
[2017-01-07] MEDS ORDERED: LIDOCAINE 1% 300 MG/30 ML SDV ONE (08:50)
[2017-01-07] MEDS ORDERED: BACITRACIN 50,000 UNITS/10 ML SYR IRR ONE (08:51)
[2017-01-07] MEDS ORDERED: PROPOFOL/EMULSION 500 MG/50 ML BOTTLE IV ONE (09:38)
[2017-01-07] MEDS ORDERED: fentaNYL 100 MCG/2 ML INJ ONE (09:38)
--- NOTE | 2017-01-07 09:39 | PDHPUP ---
History & Physical Update H&P update statement: This history and physical update is based on an assessment of the patient which was completed after admission or registration (within 24 hours), but prior to the surgery/procedure. H&P update: H&P reviewed & patient examined, no change in patient's condition since H&P completed (All of the risks, benefits, and procedure were discussed in detail with the patient. The patient has agreed and consented to proceed with surgery.)
--- NOTE | 2017-01-07 09:42 | PDANEPAE ---
ANE Past Medical History - Cardiovascular History Hx Hypertension: Yes Hx Arrhythmias: Yes Hx Chest Pain: No Hx Coronary Artery / Peripheral Vascular Disease: Yes Hx CHF / Valvular Disease: No Cardiovascular History Comment: ELEVATED LIPIDS - Pulmonary History Hx COPD: No Hx Asthma/Reactive Airway Disease: No Hx Recent Upper Respiratory Infection: No Hx Oxygen in Use at Home: No Hx Sleep Apnea: Yes Sleep Apnea Screening Result - Last Documented: Positive Pulmonary History Comment: DENIES SOB W STAIRS - Neurologic History Hx Cerebrovascular Accident: No Hx Seizures: No Hx Dementia: No Neurologic History Comment: TOURETTE SYNDROME. TRIGEMINAL NEURALGIA. HX MENIERES - Endocrine History Hx Diabetes: No - Renal History Hx Renal Disorders: Yes Renal History Comment: MILD BPH NOCTURIA 3 X WEEK - Liver History Hx Hepatic Disorders: No - Neurological & Psychiatric Hx Hx Neurological and Psychiatric Disorders: Yes Neurological / Psychiatric History Comment: CONSTANT HEADACHE UNKNOWN CAUSE HAS BEEN TO SPECIALIST AT [facility] GOING TO [facility] 08/2013, REOLVED 2013. DEPRESSION - Cancer History Hx Cancer: No - Congenital Disorder History Hx Congenital Disorders: No - GI History Hx Gastrointestinal Disorders: Yes Gastrointestinal History Comment: INTERMITTENT REFLUX USES OTC AT - Other Health History Other Health History: CHRONIC RHINITIS. PERM BRIDGE UPPER - Chronic Pain History Chronic Pain: Yes (LOW BACK R GROIN) - Surgical History Prior Surgeries: CRANIOTOMY. FUSION X2 2014 & 2012. L4-5 SPONDYLOLISTHESIS 2011. RT LABRINTHECTOMY FOR MENIERES DX. SEPTOPLASTY. LT SHLDR. RT HAND. VENTRAL HERNIA REPAIR. L1-2 MICRODISCECTOMY 07-22-14 ANE Review of Systems - Exercise capacity METS (RN): 4 METS ANE Patient History - Allergies Allergies/Adverse Reactions: [place] Allergy (Verified 10/14/16 09:19) hops Allergy (Unknown, Uncoded 10/07/14 09:29) pos allergy test sagebrush Allergy (Unknown, Uncoded 10/07/14 09:30) pos allergy test - Home Medications Home Medications: Lisinopril [Zestril 10 mg (*)] 10 mg PO DAILY 10/01/11 [Last Taken 01/07/17 06: 00] Ranitidine HCl [Ranitidine HCl 150 mg] 150 mg PO HS 10/12/11 [Last Taken 19:30] Escitalopram Oxalate [Lexapro] 20 mg PO DAILY 07/17/14 [Last Taken 01/07/17 06: 00] Niacin [Niacin 500 mg (*)] 500 mg PO DAILY 10/14/16 [Last Taken 01/06/17 19:30] Sildenafil Citrate [Viagra] 100 mg PO DAILY PRN 10/14/16 [Last Taken Unknown] Tamsulosin HCl [Flomax 0.4 MG (*)] 0.8 mg PO DAILY 10/14/16 [Last Taken Unknown] - NPO status NPO Since - Liquids (Date): 01/06/17 NPO Since - Liquids (Time): 19:30 NPO Since - Solids (Date): 01/06/17 NPO Since - Solids (Time): 19:30 - Smoking Hx Smoking Status: Never smoked - Family Anes Hx Family Hx Anesthesia Complications: no ANE Labs/Vital Signs - Vital Signs Blood Pressure: 133/75 Heart Rate: 43 Respiratory Rate: 18 O2 Sat (%): 95 Height: 177.8 cm Weight: 83.915 kg ANE Physical Exam - Airway Neck exam: decreased ROM, spinal fusion Mallampati Score: Class 2 Mouth exam: normal dental/mouth exam - Pulmonary Pulmonary: no respiratory distress, no rales or rhonchi, clear to auscultation - Cardiovascular Cardiovascular: regular rate and rhythym, no murmur, rub, or gallop, systolic murmur - ASA Status ASA Status: III ANE Anesthesia Plan Anesthesia Plan: general endotracheal anesthesia
[2017-01-07] MEDS ORDERED: ROCURONIUM 50 MG/5 ML VIAL ONE (10:01)
[2017-01-07] MEDS ORDERED: DEXAMETHASONE 4 MG/ML VIAL ONE (10:01)
[2017-01-07] MEDS ORDERED: SUGAMMADEX SODIUM 200 MG/2 ML VIAL IVP ONE (10:01)
[2017-01-07] MEDS ORDERED: ONDANSETRON 4 MG/2 ML VIAL ONE (10:01)
[2017-01-07] MEDS ORDERED: OXYCODONE/APAP 5/325 TAB PO PRN (10:08)
[2017-01-07] MEDS ORDERED: DEXAMETHASONE 4 MG/ML VIAL IVP PRN (10:08)
[2017-01-07] MEDS ORDERED: LR 500 ML IV PRN (10:08)
[2017-01-07] MEDS ORDERED: NALOXONE HCL 0.4 MG/ML INJ IVP PRN (10:08)
[2017-01-07] MEDS ORDERED: fentaNYL 100 MCG/2 ML INJ IVP PRN (10:08)
[2017-01-07] MEDS ORDERED: ONDANSETRON 4 MG/2 ML VIAL IVP PRN (10:08)
[2017-01-07] MEDS ORDERED: ACETAMINOPHEN 500 MG TAB PO PRN (10:08)
[2017-01-07] MEDS ORDERED: HYDROCODONE/APAP 5/325 TAB PO PRN (10:08)
--- NOTE | 2017-01-07 10:43 | POSTANESTH ---
Post Anesthetic Evaluation Cardiovascular Status: Normal, Stable Respiratory Status: Normal, Stable Level of Consciousness/Mental Status: Can Participate in Eval Pain Control: Adequate, Prn Tx Ordered Nausea/Vomiting Control: Adequate, Prn Tx Ordered Complications Possibly Related to Anesthesia: None Noted
--- NOTE | 2017-01-07 10:45 | POSTOPPROG ---
Post Op Note Date of Operation: 01/07/17 Surgeon: Sharona Shane Classifier Operator: Jerilyn Prabhakar PA-C Anesthesia: GET(General Endotracheal) Pre-op Diagnosis: Facial pain Post-op Diagnosis: Facial pain Procedure: Right V1 peripheral nerve stimulator trial Inf/Abcess present in the surg proc area at time of surgery?: No Depth: Superfical (Skin SQ) EBL: Minimal Plan Plan: 71 yo male s/p right V1 peripheral nerve stimulator trial - neuro checks - pain control - advance diet - dc home Exam Awake. Alert Following commands ARENAS x4
--- NOTE | 2017-01-07 10:47 | GOP ---
[f rep st] OPERATIVE REPORT DATE OF OPERATION: 01/07/2017 SURGEON: Sharona Shane DO NEUROSURGEON: Sharona Shane DO TELEPHONE ANSWERING SERVICE OPERATOR: None. PREOPERATIVE DIAGNOSIS: Trigeminal neuralgia. POSTOPERATIVE DIAGNOSIS: Trigeminal neuralgia. PROCEDURE PERFORMED: Right V1 peripheral nerve stimulator lead trial. FINDINGS: SPECIMENS: None. ESTIMATED BLOOD LOSS: 1 mL. INDICATIONS: This is a 71-year-old male with intractable V1 trigeminal neuralgia failing multiple c onservative management options, who elected to move forward with V1 trial placement. He was found t o be a good candidate by Neuropsych and elected to move forward. DESCRIPTION OF PROCEDURE: He was identified, consented, and sites were marked. Brought to the oper ating room, anesthetized under general endotracheal anesthesia, placed on the OR bed. All pressure points were appropriately padded. Hair was clipped with the OR clippers. He was prepped with ocula r Betadine prep. He was then draped in the usual sterile fashion. A stab incision was made with an 11 blade using the On-Q tunneler. We tunneled over to the supraorbital region in the V1 distributi on on the right side and removed the stylet, placed the lead, removed the sheath. Took an x-ray and verified the lead was in good position. Removed the stylet, placed Injex anchor, sutured it down w ith a 2-0 silk stitch at 2 positions, and removed the drapes. Dressed the wound with gauze and Medi pore tape and connected it to the lead extension for trial. Final x-ray revealed it was just over t he supraorbital nerve in the V1 distribution and the lead was not prominent. There were no complica tions. FLUIDS: 200 mL of crystalloid. URINE OUTPUT: None. DRAINS: None. COMPLICATIONS: None. /[id number]/MODL
[2017-01-07 11:30] VITALS: TEMP 98.1
[2017-01-07 11:32] VITALS: BP 124/80; PULSE 54; RESP 13; O2SAT 100
[2017-01-07] MEDS ORDERED: HYDROCODONE/APAP 5/325 TAB ONE (11:43)
== END 2017-01-07 12:08 | disposition home or self-care (01) ==
LOC: FSGY 08:22
PROVIDERS: ATTEND Neurological Surgery
PROC: 01HY3MZ Insertion of Neurostimulator Lead into Peripheral Nerve, Percutaneous Approach (ICD-10-PCS; principal; 2017-01-07 09:45)
DX: G50.0 Trigeminal neuralgia (principal)
CPT/HCPCS: J0690; J1100; J2405; J2704; J3010

== ENCOUNTER → 2017-06-01 | Outpatient (CLI) | payer OTHER | LOC: FIMAGING 16:06 | PROVIDERS: ATTEND Physician Assistant | DX: M23.222 Derangement of posterior horn of medial meniscus due to old tear or injury, left knee (principal); M22.42 Chondromalacia patellae, left knee; M71.22 Synovial cyst of popliteal space [Baker], left knee ==

== ENCOUNTER → 2017-06-28 | Outpatient (CLI) | payer OTHER | LOC: BMCIMAGING 08:32 | PROVIDERS: ATTEND Physician Assistant | DX: M25.521 Pain in right elbow (principal); W19.XXXA Unspecified fall, initial encounter ==

== ENCOUNTER → 2017-07-05 | Outpatient (CLI) | payer OTHER ==
[~2017-07-05] MED LIST: GADOBUTROL 10 ML VIAL IVP ONE
== END ==
LOC: FIMAGING 12:15
PROVIDERS: ATTEND Physician Assistant Surgical
DX: M51.36 Other intervertebral disc degeneration, lumbar region (principal); Z98.1 Arthrodesis status
CPT/HCPCS: 72158; A9585